=== PATIENT | male | born 1975 | race Two or more races ===

== ENCOUNTER 2018-01-17 11:22 | Emergency (ER) | payer OTHER ==
[~2018-01-17] VITALS: Ht 180.3 cm; Wt 86.2 kg
== END 2018-01-17 20:32 | disposition home or self-care (01) ==
LOC: ER 11:22
DX: J40 Bronchitis, not specified as acute or chronic (principal)

== ENCOUNTER → 2018-02-17 | Outpatient (CLI) | payer OTHER | END | disposition home or self-care (01) | LOC: LAB 09:48 | DX: I10 Essential (primary) hypertension (principal); E11.9 Type 2 diabetes mellitus without complications; E03.8 Other specified hypothyroidism; E78.2 Mixed hyperlipidemia; M81.0 Age-related osteoporosis without current pathological fracture; N40.0 Benign prostatic hyperplasia without lower urinary tract symptoms ==

== ENCOUNTER → 2018-02-17 | Outpatient (CLI) | payer OTHER | END | disposition home or self-care (01) | LOC: SONOGRAMA 09:25 → RAD 09:25 | DX: R10.9 Unspecified abdominal pain (principal); M12.88 Other specific arthropathies, not elsewhere classified, other specified site; M47.899 Other spondylosis, site unspecified; M46.47 Discitis, unspecified, lumbosacral region ==

== ENCOUNTER 2018-02-28 04:45 | Emergency (ER) | payer OTHER ==
[~2018-02-28] VITALS: Ht 180.3 cm; Wt 88.5 kg
== END 2018-02-28 12:07 | disposition home or self-care (01) ==
LOC: ER 04:45
DX: K29.70 Gastritis, unspecified, without bleeding (principal)

== ENCOUNTER 2018-03-09 05:48 | Day surgery (SDC) | payer OTHER | END 2018-03-09 14:10 | disposition home or self-care (01) | LOC: CIR.AMB 05:48 | DX: K80.10 Calculus of gallbladder with chronic cholecystitis without obstruction (principal) ==

== ENCOUNTER 2020-10-22 07:41 | Outpatient (CLI) | payer OTHER | END 2020-10-22 08:02 | disposition home or self-care (01) | LOC: NUCLEAR 07:41 | PROVIDERS: ATTEND Internal Medicine Cardiovascular Disease | DX: I10 Essential (primary) hypertension (principal) ==

== ENCOUNTER 2022-04-01 09:07 | Emergency (ER) | payer OTHER ==
[~2022-04-01] VITALS: Ht 177.8 cm; Wt 90.7 kg
[2022-04-01] MEDS ORDERED: HYZAAR 100-12.1 EACH PO (09:20)
[2022-04-01] MEDS ORDERED: ATORVASTATIN CA10 MG PO (09:20)
[2022-04-01] MEDS ORDERED: RESTORIL30 M1 PO (09:21)
[2022-04-01] MEDS ORDERED: ATIVAN2 M1 PO (09:21)
== END 2022-04-01 11:53 | disposition home or self-care (01) ==
LOC: ER 09:07
DX: U07.1 COVID-19 (principal); I10 Essential (primary) hypertension; J45.909 Unspecified asthma, uncomplicated; Z88.8 Allergy status to other drugs, medicaments and biological substances

== ENCOUNTER 2022-04-02 08:45 | Outpatient (CLI) | payer OTHER ==
[~2022-04-02 08:45] MED LIST: ATIVAN2 M1 PO; ATORVASTATIN CA10 MG PO; HYZAAR 100-12.1 EACH PO; RESTORIL30 M1 PO
== END 2022-04-02 09:30 | disposition home or self-care (01) ==
LOC: ASH CLINIC 08:45
PROVIDERS: ATTEND General Practice
DX: U07.1 COVID-19 (principal)

== ENCOUNTER 2022-04-22 18:16 | Inpatient (IN) | payer OTHER ==
[~2022-04-22] VITALS: Ht 180.3 cm; Wt 88.0 kg
== END 2022-05-02 17:03 | disposition home or self-care (01) | DRG 194 ==
LOC: ER 18:16 → SEC-K 04-23 05:12 → MEDJ 04-23 05:12 → SEC-K 04-23 07:35 → SURH 04-24 13:07
PROVIDERS: ADMIT Internal Medicine; ATTEND Internal Medicine
PROC: 3E0F7GC Introduction of Other Therapeutic Substance into Respiratory Tract, Via Natural or Artificial Opening (ICD-10-PCS; 2022-04-22)
PROC: 8E0ZXY6 Isolation (ICD-10-PCS; principal; 2022-04-23)
PROC: BW24YZZ Computerized Tomography (CT Scan) of Chest and Abdomen using Other Contrast (ICD-10-PCS; 2022-04-27)
PROC: B246ZZZ Ultrasonography of Right and Left Heart (ICD-10-PCS; 2022-04-28)
DX: J15.7 Pneumonia due to Mycoplasma pneumoniae (principal); J45.51 Severe persistent asthma with (acute) exacerbation; J90 Pleural effusion, not elsewhere classified; U09.9 Post COVID-19 condition, unspecified; I10 Essential (primary) hypertension; D72.829 Elevated white blood cell count, unspecified

== ENCOUNTER 2022-08-23 16:50 | Emergency (ER) | payer OTHER ==
[~2022-08-23] VITALS: Ht 180.3 cm; Wt 90.7 kg
[2022-08-23] MEDS ORDERED: ZOLOFT25 MG PO (17:01)
[2022-08-23] MEDS ORDERED: ESTAZOLAM1 MG PO (17:02)
== END 2022-08-23 18:31 | disposition home or self-care (01) ==
LOC: ER 16:50
DX: S61.211A Laceration without foreign body of left index finger without damage to nail, initial encounter (principal); W26.0XXA Contact with knife, initial encounter; Y93.G3 Activity, cooking and baking; Y92.046 Garden or yard of boarding-house as the place of occurrence of the external cause

== ENCOUNTER 2023-02-22 15:44 | Emergency (ER) | payer OTHER ==
[~2023-02-22] VITALS: Ht 180.3 cm; Wt 90.7 kg
[~2023-02-22 15:44] MED LIST changes: +ESTAZOLAM1 MG PO; +ZOLOFT25 MG PO
[2023-02-22] MEDS ORDERED: CLONAZEPAM1 M1 PO (16:05)
[2023-02-22] MEDS ORDERED: ZOLOFT100 MG PO (16:05)
== END 2023-02-22 17:59 | disposition home or self-care (01) ==
LOC: ER 15:44
DX: S61.223A Laceration with foreign body of left middle finger without damage to nail, initial encounter (principal); W25.XXXA Contact with sharp glass, initial encounter; Y93.89 Activity, other specified; Y92.010 Kitchen of single-family (private) house as the place of occurrence of the external cause; F32.89 Other specified depressive episodes; Z88.8 Allergy status to other drugs, medicaments and biological substances

== ENCOUNTER 2023-10-22 21:16 | Emergency (ER) | payer OTHER ==
[~2023-10-22] VITALS: Ht 175.3 cm; Wt 85.7 kg
[~2023-10-22 21:16] MED LIST changes: +CLONAZEPAM1 M1 PO; +DEPAKOTE ER250 MG PO; +ZOLOFT100 MG PO
[2023-10-22] MEDS ORDERED: CLONAZEPAM2 M1 (21:29)
[2023-10-22] MEDS ORDERED: CLONAZEPAM1 M1 (21:29)
[2023-10-22] MEDS ORDERED: 0.9 % SODIUM CHLORIDE 1,000 ML IV SCH (21:45)
[2023-10-22] MEDS ORDERED: KETOROLAC TROMETHAMINE 30 MG VIAL IV ONE (21:45)
[2023-10-22] MEDS ORDERED: TAMSULOSIN HCL 0.4 MG CAP PO ONE (21:45)
[2023-10-22] MEDS ORDERED: ONDANSETRON HCL 2 MG/ML VIAL IV ONE (21:45)
[2023-10-22 21:57] LABS: HEMATOCRIT 43.2 % (39.0-48.0); HEMOGLOBIN 15.2 g/dL (13-16.00); MEAN CELL VOLUME 89.1 fL (80.0-100.00); MEAN CORPUSCULAR HEMOGLOBIN 31.4 pg (27.00-32.0); MEAN CORPUSCULAR HGB CONC 35.3 g/dl (32.0-36.0); PLATELET COUNT 227 K/uL (150-450); RED BLOOD COUNT 4.85 M/uL (4.00-6.00); RED CELL DISTRIBUTION WIDTH 13.5 % (11.5-14.5)
[2023-10-22 22:22] LABS: ALBUMIN 4.3 gm/dL (3.4-5.0); BILIRUBIN TOTAL 0.56 mg/dL (0.3-1.2); CREATININE SERUM 0.99 mg/dL (0.70-1.30); GFR 80.68; GLOBULINA 2.8 G/DL (2.4-3.5); POTASSIUM 3.52 mEq/L (3.5-5.1); TOTAL PROTEIN 7.1 gm/dL (6.4-8.2)
[2023-10-22] MEDS ORDERED: CIPRO500 MG PO (23:10)
[2023-10-22] MEDS ORDERED: TAMS0.4C PO (23:10)
[2023-10-22] MEDS ORDERED: KETO10TA2 PO (23:10)
[2023-10-22 23:15] LABS: URINE APPEARANCE Turbid; URINE BILIRRUBIN Negative (NEGATIVE); URINE BLOOD Large; URINE COLOR Dark Yellow; URINE GLUCOSE Negative (NEGATIVE); URINE LEUKOCYTE Trace; URINE NITRATE Negative; URINE PROTEIN 30 (NEGATIVE)
[2023-10-22 23:18] LABS: URINE BACTERIA 46.6 uL (0.0-1933); URINE EPITHELIAL CELLS 6.6 uL (0.0-38.8); URINE RBC 614.2 uL (0.0-20.8); URINE WBC 11.5 uL (0.0-23.2)
[2023-10-22 23:41] LABS: URINE CRYSTALS MODERATE /HPF
== END 2023-10-22 23:23 | disposition home or self-care (01) ==
LOC: ER 21:16
PROVIDERS: General Practice
DX: N20.9 Urinary calculus, unspecified (principal); R10.9 Unspecified abdominal pain; I10 Essential (primary) hypertension; Z88.8 Allergy status to other drugs, medicaments and biological substances